=== PATIENT | female | born 1935 | race Caucasian/White ===

== ENCOUNTER 2025-09-24 18:25 | Inpatient (IN) | payer MEDICAID ==
[~2025-09-24] VITALS: Ht 154.9 cm; Wt 58.7 kg
[2025-09-24 18:32] VITALS: O2SAT 100
[2025-09-24 19:17] LABS: BASOPHILS % 0.2 % (0.0-2.0); EOSINOPHILS % 0.0 % (0.0-5.0); HEMATOCRIT. 35.5 % (36.0-48.0); HEMOGLOBIN. 11.1 g/dL (12.0-16.0); LYMPHOCYTES % 7.5 % (20.0-50.0); MEAN PLATELET VOLUME 7.4 fl (7.4-10.4); MONOCYTES % 7.5 % (2.0-8.0); NEUTROPHILS % 84.8 % (40.0-76.0); PLATELET 234 x1000/uL (130-400); RED BLOOD CELL COUNT 4.20 mill/uL (4.2-5.4); RED CELL DISTRIBUTION WIDTH 16.0 % (11.6-14.6)
[2025-09-24 19:25] LABS: CREATININE 0.9 mg/dL (0.6-1.0); UREA NITROGEN BLOOD 17 mg/dL (9-23)
[2025-09-24 19:26] LABS: PROTEIN TOTAL 7.5 g/dL (6.0-8.3)
[2025-09-24 19:27] LABS: ASPARTATE AMINOTRANSFERASE 29 IU/L (<34); BILIRUBIN DIRECT 0.2 mg/dL (<=3.0)
[2025-09-24 19:28] LABS: BILIRUBIN TOTAL 0.8 mg/dL (0.1-1.0)
[2025-09-24 19:36] LABS: TROPONIN I HIGH SENSITIVITY 50 ng/L (3.0-34)
[2025-09-24 19:50] LABS: INR 1.0
[2025-09-24] MEDS: ACETAMINOPHEN 1000MG/100ML 100 ML IV ONE (21:01)
[2025-09-24] MEDS: IOHEXOL-300 100 ML BOTTLE ONE (22:00)
[2025-09-25] MEDS: HALOPERIDOL LACTATE 5MG/ML VIAL IM ONE (00:09)
[2025-09-25] MEDS ORDERED: CLONIDINE 0.1MG TABLET PO PRN ×2 (06:15→10:00)
[2025-09-25] MEDS: LABETALOL 5MG/ML 4ML INJ IV NR (06:38)
[2025-09-25 08:00] VITALS: BP 163/79; PULSE 87; RESP 17; TEMP 35.6; O2SAT 97
[2025-09-25] MEDS ORDERED: ACETAMINOPHEN 325MG TABLET PO PRN ×2 (10:00)
[2025-09-25] MEDS ORDERED: LORAZEPAM 0.5MG TABLET PO PRN (10:00)
[2025-09-25] MEDS ORDERED: DEXTROSE 50% WATER 50ML SYRINGE IV PRN (10:00)
[2025-09-25] MEDS ORDERED: IPRATROPIUM/ALBUTEROL 0.5-3(2.5)MG/3ML NEB HHN PRN (10:00)
[2025-09-25] MEDS ORDERED: GUAIFENESIN 200MG/10ML SUGAR FREE UDC PO PRN (10:00)
[2025-09-25] MEDS ORDERED: DOCUSATE SODIUM 100MG CAPSULE PO PRN (10:00)
[2025-09-25] MEDS ORDERED: ONDANSETRON HCL 4MG/2ML INJ IV PRN (10:00)
[2025-09-25] MEDS ORDERED: HYDRALAZINE 20MG/ML VIAL IV PRN (10:30)
[2025-09-25] MEDS: AMLODIPINE 10MG TABLET PO SCH (10:41)
[2025-09-25 11:37] LABS: T4 FREE 1.44 ng/dL (0.89-1.76)
[2025-09-25 12:00] VITALS: BP 125/70; PULSE 92; RESP 16; TEMP 36.1; O2SAT 97
[2025-09-25] MEDS: BLOOD SUGAR DIAGNOSTIC STRIP TEST SCH (13:02)
[2025-09-25 13:05] VITALS: BP 150/72; PULSE 87; RESP 18; TEMP 36.14
[2025-09-25 16:00] VITALS: BP 146/55; PULSE 93; RESP 17; TEMP 35.6; O2SAT 98
[2025-09-25] MEDS: DEXT 5%/0.45% NACL 1000ML 1,000 ML IV SCH (16:07)
[2025-09-25] MEDS ORDERED: KETOROLAC 15MG/ML VIAL IV PRN (18:45)
[2025-09-25 19:32] LABS: VITAMIN B12 SERUM > 2000 pg/mL (211-911)
[2025-09-25 19:37] LABS: TROPONIN I HIGH SENSITIVITY 68 ng/L (3.0-34)
[2025-09-25 20:00] VITALS: BP 155/68; PULSE 98; RESP 18; TEMP 36.1; O2SAT 97
[2025-09-25] MEDS: ENOXAPARIN 40MG/0.4ML SYR SUBCUT SCH (20:37)
[2025-09-26] VITALS: BP 155/65; PULSE 89; RESP 18; TEMP 36.4; O2SAT 98
[2025-09-26 01:29] LABS: TROPONIN I HIGH SENSITIVITY 56 ng/L (3.0-34)
[2025-09-26 04:00] VITALS: BP 126/80; PULSE 93; RESP 18; TEMP 36.2; O2SAT 100
[2025-09-26 08:00] VITALS: BP 135/60; PULSE 74; RESP 18; TEMP 35.9; O2SAT 96
[2025-09-26] MEDS: FAMOTIDINE 20MG/2ML VIAL IV SCH (10:00)
[2025-09-26 12:00] VITALS: BP 132/72; PULSE 88; RESP 18; TEMP 35.6; O2SAT 96
[2025-09-26 16:00] VITALS: BP 140/77; PULSE 91; RESP 18; TEMP 35.6; O2SAT 96
[2025-09-26 20:00] VITALS: BP 137/63; PULSE 77; RESP 18; TEMP 36.4; O2SAT 98
[2025-09-26 23:27] LABS: CLARITY URINE CLEAR (CLEAR); COLOR URINE YELLOW (YELLOW); GLUCOSE URINE NEGATIVE (NEGATIVE); KETONES URINE 2+ (NEGATIVE); LEUKOCYTE ESTERASE URINE 2+ (NEGATIVE); NITRITE URINE NEGATIVE (NEGATIVE); OCCULT BLOOD URINE TRACE (NEGATIVE); PH URINE 6.0 (4.5-8.0); PROTEIN URINE 1+ (NEGATIVE); SPECIFIC GRAVITY URINE 1.017 (1.005-1.030); UROBILINOGEN URINE 1.0 E.U./dL (0.2-1.0)
[2025-09-27] VITALS: BP 149/63; PULSE 79; RESP 18; TEMP 36.6; O2SAT 99
[2025-09-27 01:20] LABS: SQUAMOUS EPITHELIAL CELL URINE NONE SEEN /lpf (RARE/1+)
[2025-09-27 01:23] LABS: WBC URINE 50-100 /hpf (0-2)
[2025-09-27 01:24] LABS: BACTERIA URINE 3+; RBC URINE 0-2 /hpf (0-2)
[2025-09-27 04:00] VITALS: BP 145/57; PULSE 81; RESP 18; TEMP 36.3; O2SAT 98
[2025-09-27 07:10] LABS: CREATININE 0.6 mg/dL (0.6-1.0); UREA NITROGEN BLOOD 13 mg/dL (9-23)
[2025-09-27 07:51] LABS: HEMATOCRIT. 32.9 % (36.0-48.0); HEMOGLOBIN. 10.5 g/dL (12.0-16.0); RED BLOOD CELL COUNT 3.85 mill/uL (4.2-5.4); RED CELL DISTRIBUTION WIDTH 16.0 % (11.6-14.6)
[2025-09-27 08:00] VITALS: BP 155/62; PULSE 73; RESP 17; TEMP 36.1; O2SAT 97
[2025-09-27] MEDS: CEFTRIAXONE 1GM/50ML 50 ML IV SCH (10:01)
[2025-09-27 10:36] LABS: BAND% 4.0 % (1.0-6.0); EOSINOPHILS % MANUAL 3.0 % (0.0-5.0); LYMPHOCYTES % MANUAL 25.0 % (20.0-60.0); MONOCYTES % MANUAL 3.0 % (2.0-8.0); NEUTROPHILS % MANUAL 65.0 % (45.0-75.0)
[2025-09-27 10:37] LABS: PLATELET ESTIMATE NORMAL
[2025-09-27 10:38] LABS: PLATELET 225 x1000/uL (130-400)
[2025-09-27 12:00] VITALS: BP 144/51; PULSE 83; RESP 18; TEMP 36.6; O2SAT 96
[2025-09-27] MEDS ORDERED: ACET-2708 MT (12:25)
[2025-09-27] MEDS ORDERED: SULF1TAB47 MT (12:25)
[2025-09-27] MEDS ORDERED: IBUP-1455 MT (12:25)
[2025-09-27] MEDS ORDERED: LOSA100T33 MT (12:25)
[2025-09-27 14:40] VITALS: BP 144/51; PULSE 83; RESP 18; TEMP 97.8
[2025-09-27 16:00] VITALS: BP 144/51; PULSE 81; RESP 18; TEMP 36.5; O2SAT 96
[2025-09-27] MEDS ORDERED: ENOXAPARIN 30MG/0.3ML SYR SUBCUT SCH (20:00)
[2025-09-29 06:14] LABS: FOLATE HEMATOCRIT 33.5 % (34.0-46.6)
[2025-09-29 13:07] LABS: FOLATE HEMOLYSATE 257.0 ng/mL (Not Estab.); FOLATE RBC 767 ng/mL (>498)
== END 2025-09-27 15:30 | disposition home or self-care (01) | DRG 135 ==
LOC: ER 18:25 → 6WST 09-25 04:44 → EDBEDREQDT 09-25 06:05 → EDBEDREQ 09-25 06:05 → EDBEDREQTM 09-25 06:05 → ENRESERV 09-25 06:17
PROVIDERS: ADMIT Hospitalist; ATTEND Hospitalist
DX: S22.21XA Fracture of manubrium, initial encounter for closed fracture (principal); G92.8 Other toxic encephalopathy; I16.1 Hypertensive emergency; N39.0 Urinary tract infection, site not specified; F03.90 Unspecified dementia, unspecified severity, without behavioral disturbance, psychotic disturbance, mood disturbance, and anxiety; K44.9 Diaphragmatic hernia without obstruction or gangrene; K43.9 Ventral hernia without obstruction or gangrene; I21.A1 Myocardial infarction type 2; I10 Essential (primary) hypertension; E86.0 Dehydration; K40.90 Unilateral inguinal hernia, without obstruction or gangrene, not specified as recurrent; G31.9 Degenerative disease of nervous system, unspecified; K57.30 Diverticulosis of large intestine without perforation or abscess without bleeding; W01.0XXA Fall on same level from slipping, tripping and stumbling without subsequent striking against object, initial encounter; K80.20 Calculus of gallbladder without cholecystitis without obstruction; R73.9 Hyperglycemia, unspecified; K82.8 Other specified diseases of gallbladder; M85.80 Other specified disorders of bone density and structure, unspecified site; Y93.89 Activity, other specified; Y92.89 Other specified places as the place of occurrence of the external cause; Z86.73 Personal history of transient ischemic attack (TIA), and cerebral infarction without residual deficits; Z79.899 Other long term (current) drug therapy
CPT/HCPCS: 36415; 71260; 74177; 80048; 80076; 81003; 82550; 82607; 82747; 82962; 83036; 83540; 83550; 83880; 84439; 84443; 84484; 85014; 85025; 87077; 87186; 93005; 93970; 97162; 97166; 99285; A4606; J0696; J1308; J1630; J1650; J3490; Q9967; J0131